=== PATIENT | male | born 1975 | race Caucasian/White ===

== ENCOUNTER 2016-11-13 20:19 | Emergency (ER) | payer BC ==
[~2016-11-13] VITALS: Ht 175.3 cm; Wt 69.0 kg
[2016-11-13 20:19] VITALS: TEMP 37; Ht 175.3 cm; Wt 69.0 kg
[~2016-11-13 20:19] MED LIST: ALBUAER2 INH; FLVHFAUNK INH; LORA10TA5 PO
[2016-11-13] MEDS ORDERED: ONDANSETRON INJ 2 MG/ML 2 ML VIAL IV STA ×2 (20:34→23:14)
[2016-11-13] MEDS ORDERED: SODIUM CHLORIDE 0.9% 1000ML 2,000 ML IV STA (20:34)
--- NOTE | 2016-11-13 20:40 | EMERGENCY ROOM VISIT NOTE ---
History Report prepared by Adryan: Donell Gray Under the Supervision of: Dr. Enoc Jean D.O. First contact with patient: 20:25 Chief Complaint: VOMITING Stated Complaint: VOMIT, WEAKNESS History of Present Illness The patient is a 40 year old male who presents to the Emergency Room with complaints of vomiting that began this afternoon. He rates his pain a 9/10 in severity. The patient rode his bike 75 miles this morning. When he came home, he ate lunch and then went to the store. After he came home from the store he started to not feel well. He then began to vomit until there was nothing in his system. He cannot keep any food or water in his system. The only time he felt like this was 20 years ago. He has been dry heaving since then with nausea, body aches, chills, abdominal pain, weakness, and a headache. He denies any fevers, shortness of breath, or chest pain. He also denies having any abnormal bloody secretions. He has a past medical history of asthma, a tonsillectomy, and a wisdom teeth extraction. Source of History: patient Onset: this afternoon Position: other (GI) Symptom Intensity: 9/10 Quality: ache Timing: constant Associated Symptoms: + abdominal pain, + chills, + headache, + vomiting, + weakness, No SOB, No chest pain, No fevers Review of Systems See HPI for pertinent positives & negatives. A total of 10 systems reviewed and were otherwise negative. Past Medical & Surgical Medical Problems: (1) Asthma Surgical Problems: (1) Hx of tonsillectomy (2) [place] teeth extracted Family History Patient reports no known family medical history. Social History Smoking Status: Never Smoker Smokeless Tobacco Use: No Alcohol Use: occasionally Drug Use: none Marital Status: single Housing Status: lives alone Occupation Status: employed Current/Historical Medications Scheduled Albuterol (Ventolin), 2 PUFFS INH QID PRN Fluticasone Propionate (Flovent Hfa Unknown Dose), 1 PUFF INH BID Loratadine (Claritin), 10 MG PO DAILY Ondasetron Odt (Zofran Odt), 4 MG SL Q6H Allergies Coded Allergies: Tree Extract (Unverified Allergy, Intermediate, WATERY ITCHY EYES, 11/13/16 ) Cat Dander (Unverified Allergy, Unknown, ITCHY/WATERY EYES, 11/13/16) Shellfish (Unverified Allergy, Unknown, SWELLING OF THROAT, 11/13/16) Physical Exam Vital Signs Date Time Temp Pulse Resp B/P Pulse Ox O2 Delivery O2 Flow Rate FiO2 11/13/16 23:19 78 16 132/61 93 Room Air 11/13/16 22:00 78 18 127/75 98 Room Air 11/13/16 20:19 37.0 79 18 137/77 98 Room Air Physical Exam GENERAL: Patient is awake, alert, and in no acute distress. Patient is resting comfortably and showing no signs of anxiety EYES: The conjunctivae are clear. The pupils are round and reactive. EARS, NOSE, MOUTH AND THROAT: The nose is without any evidence of any deformity. Mucous membranes are dry tongue is midline NECK: The neck is nontender and supple. RESPIRATORY: Normal respiratory effort is noted there is no evidence of wheezing rhonchi or rales CARDIOVASCULAR: Regular rate and rhythm noted there no murmurs rubs or gallops normal S1 normal S2 GASTROINTESTINAL: The abdomen is soft. Bowel sounds are present in all quadrants. Abdomen is nontender MUSCULOSKELETAL/EXTREMITIES: There is no evidence of gross deformity full range of motion is noted in the hips and shoulders SKIN: There is no obvious evidence of any rash. There are no petechiae, pallor or cyanosis noted. NEUROLOGIC: Patient is awake alert and oriented x3. Medical Decision & Procedures ER Provider Diagnostic Interpretation: Radiology results are stated below per my review and radiologist interpretation: PA CHEST RADIOGRAPH AND UPRIGHT AND SUPINE AP RADIOGRAPHS OF THE ABDOMEN CLINICAL HISTORY: Abdominal pain and vomiting. COMPARISON STUDY: KUB October 27, 2015. FINDINGS: Lung volumes are normal. Lungs are clear. There is no pneumothorax or pleural effusion. Cardiac size is normal. Mediastinal contours are normal. There is no evidence of pulmonary edema. There is no free air. Bowel gas pattern is normal. No urinary calculi are identified. IMPRESSION: 1. No free air or evidence of bowel obstruction. 2. No acute cardiopulmonary findings. Electronically signed by: Shine Callahan M.D. 11/13/2016 9:31 PM Dictated Date/Time: 11/13/2016 9:29 PM Laboratory Results 11/13/16 20:40 Red Blood Count 4.87, Mean Corpuscular Volume 88.7, Mean Corpuscular Hemoglobin 31.0, Mean Corpuscular Hemoglobin Concent 35.0, Mean Platelet Volume 9.8, Neutrophils (%) (Auto) 88.9, Lymphocytes (%) (Auto) 3.2, Monocytes (%) (Auto) 7.1, Eosinophils (%) (Auto) 0.5, Basophils (%) (Auto) 0.1, Neutrophils # (Auto) 8.24, Lymphocytes # (Auto) 0.30, Monocytes # (Auto) 0.66, Eosinophils # (Auto) 0.05, Basophils # (Auto) 0.01 11/13/16 20:40 Test 11/13/16 20:40 11/13/16 23:15 White Blood Count 9.28 K/uL (4.8-10.8) Red Blood Count 4.87 M/uL (4.7-6.1) Hemoglobin 15.1 g/dL (14.0-18.0) Hematocrit 43.2 % (42-52) Mean Corpuscular Volume 88.7 fL (80-100) Mean Corpuscular Hemoglobin 31.0 pg (25-34) Mean Corpuscular Hemoglobin Concent 35.0 g/dl (32-36) Platelet Count 268 K/uL (130-400) Mean Platelet Volume 9.8 fL (7.4-10.4) Neutrophils (%) (Auto) 88.9 % Lymphocytes (%) (Auto) 3.2 % Monocytes (%) (Auto) 7.1 % Eosinophils (%) (Auto) 0.5 % Basophils (%) (Auto) 0.1 % Neutrophils # (Auto) 8.24 K/uL (1.4-6.5) Lymphocytes # (Auto) 0.30 K/uL (1.2-3.4) Monocytes # (Auto) 0.66 K/uL (0.11-0.59) Eosinophils # (Auto) 0.05 K/uL (0-0.5) Basophils # (Auto) 0.01 K/uL (0-0.2) RDW Standard Deviation 42.8 fL (36.4-46.3) RDW Coefficient of Variation 13.1 % (11.5-14.5) Immature Granulocyte % (Auto) 0.2 % Immature Granulocyte # (Auto) 0.02 K/uL (0.00-0.02) Anion Gap 10.0 mmol/L (3-11) Est Creatinine Clear Calc Drug Dose 112.5 ml/min Estimated GFR () 126.6 Estimated GFR (Non- 109.2 BUN/Creatinine Ratio 25.2 (10-20) Calcium Level 9.3 mg/dl (8.5-10.1) Magnesium Level 1.9 mg/dl (1.8-2.4) Total Bilirubin 0.7 mg/dl (0.2-1) Direct Bilirubin 0.2 mg/dl (0-0.2) Aspartate Amino Transf (AST/SGOT) 23 U/L (15-37) Alanine Aminotransferase (ALT/SGPT) 25 U/L (12-78) Alkaline Phosphatase 54 U/L (45-117) Total Creatine Kinase 149 U/L (39-308) Total Protein 6.9 gm/dl (6.4-8.2) Albumin 4.3 gm/dl (3.4-5.0) Lipase 116 U/L (73-393) Urine Color YELLOW Urine Appearance CLEAR (CLEAR) Urine pH 5.0 (4.5-7.5) Urine Specific [place] 1.021 (1.000-1.030) Urine Protein NEG (NEG) Urine Glucose (UA) NEG (NEG) Urine Ketones 2+ (NEG) Urine Occult Blood NEG (NEG) Urine Nitrite NEG (NEG) Urine Bilirubin NEG (NEG) Urine Urobilinogen NEG (NEG) Urine Leukocyte Esterase NEG (NEG) Laboratory results per my review. Medications Administered Medications (Trade) Dose Ordered Sig/Yancy Route Start Time Stop Time Status Last Admin Dose Admin Sodium Chloride (Nss 1000ml) 2,000 ml @ 999 mls/hr Q2H1M STAT IV 11/13/16 20:34 11/13/16 22:34 DC 11/13/16 20:46 999 MLS/HR Ondansetron HCl (Zofran Inj) 4 mg NOW STAT IV 11/13/16 20:34 11/13/16 20:36 DC 11/13/16 20:46 4 MG Ondansetron HCl (ZOFRAN ODT 4MG Home Pack) 1 homepack UD ONCE PO 11/13/16 23:00 11/13/16 23:01 DC 11/13/16 23:17 1 HOMEPACK Ondansetron HCl (Zofran Inj) 4 mg NOW STAT IV 11/13/16 23:14 11/13/16 23:15 DC 11/13/16 23:17 4 MG ED Course 2024: The patient was evaluated in room B7. A complete history and physical examination were performed. 2033: Ordered Zofran Inj 4 mg IV, NSS 2,000 ml @ 999 mls/hr IV 2149: The patient informed me that he would not like a CT scan. 2299: Ordered Ondansetron HCl 1 homepack PO 2313: Ordered Ondansetron HCl 4 mg IV 2330: Upon reevaluation, the patient is resting. I discussed the results and treatment plan with him. He verbalized agreement of the treatment plan. He was discharged home. Medical Decision Differential diagnosis: Etiologies such as gastroenteritis, food borne illness, infections, appendicitis , diverticulitis, inflammatory bowel disease, obstruction, GI bleed, biliary pathology, as well as others were entertained. Nursing notes reviewed. The patient is a 40-year-old male who presented to the emergency department for an evaluation of nausea vomiting. The patient was riding a bicycle today and got a significant amount of sun. He had a sunburn and states it when he got home he started noticing nausea and vomiting after eating. His vomiting was very severe prior to arrival. He was treated with IV fluids and IV antiemetics. He was reevaluated multiple times. His abdominal pain did not appear to be consistent with an acute surgical abdomen. He did not have any guarding or rigidity. I discussed the patient's laboratory and radiographic studies with him. He was encouraged to rest and avoid any strenuous activity. He was encouraged to use only a clear liquid diet for the time being. He was also encouraged to advance his diet as tolerated starting tomorrow afternoon or return to the emergency Department immediately symptoms change worsen or the need arises. The patient describes some degree of dizziness and I thought he may have vertigo. I offered to do a CAT scan of the head but he did not wish to have that at this time. Impression Primary Impression: Nausea & vomiting Additional Impression: Dehydration Scribe Attestation The scribe's documentation has been prepared under my direction and personally reviewed by me in its entirety. I confirm that the note above accurately reflects all work, treatment, procedures, and medical decision making performed by me. Departure Information Dispostion Home / Self-Care Prescriptions Ondasetron Odt (ZOFRAN ODT) 4 Mg Tab 4 MG SL Q6H for Nausea, #15 TAB Prov: Enoc Jean, DO 11/13/16 Referrals Bruce Yen M.D. (PCP) Forms HOME CARE DOCUMENTATION FORM, IMPORTANT VISIT INFORMATION Patient Instructions My [facility], Vomiting - [facility] Additional Instructions I would recommend a clear liquid diet overnight. Advance diet as tolerated after lunch tomorrow. Drink plenty of Pedialyte and Gatorade. Drink small amounts of liquids more frequently. Return to the emergency department immediately if symptoms change worsen or the need arises. Problem Qualifiers Primary Impression: Nausea & vomiting Vomiting type: unspecified Vomiting Intractability: non-intractable Qualified Codes: R11.2 - Nausea with vomiting, unspecified
[2016-11-13 20:50] LABS: BASO % 0.1 %; BASO ABS # 0.01 K/uL (0-0.2); COMPLETE YES; EOS % 0.5 %; HEMATOCRIT 43.2 % (42-52); IG% 0.2 %; LYMPH % 3.2 %; MEAN CELL VOLUME 88.7 fL (80-100); MEAN PLATELET VOLUME 9.8 fL (7.4-10.4); MONO % 7.1 %; NEUT % 88.9 %; PLATELET COUNT 268 K/uL (130-400); RED BLOOD COUNT 4.87 M/uL (4.7-6.1); WHITE BLOOD COUNT 9.28 K/uL (4.8-10.8)
[2016-11-13 21:07] LABS: BUN/CREATININE RATIO 25.2 (10-20); CREATININE 0.86 mg/dl (0.60-1.40); MAGNESIUM 1.9 mg/dl (1.8-2.4); POTASSIUM 4.1 mmol/L (3.5-5.1)
--- NOTE | 2016-11-13 21:33 | DIAGNOSTIC IMAGING REPORT ---
PA CHEST RADIOGRAPH AND UPRIGHT AND SUPINE AP RADIOGRAPHS OF THE ABDOMEN CLINICAL HISTORY: Abdominal pain and vomiting. COMPARISON STUDY: KUB October 27, 2015. FINDINGS: Lung volumes are normal. Lungs are clear. There is no pneumothorax or pleural effusion. Cardiac size is normal. Mediastinal contours are normal. There is no evidence of pulmonary edema. There is no free air. Bowel gas pattern is normal. No urinary calculi are identified. IMPRESSION: 1. No free air or evidence of bowel obstruction. 2. No acute cardiopulmonary findings. Electronically signed by: Shine Callahan M.D. 11/13/2016 9:31 PM Dictated Date/Time: 11/13/2016 9:29 PM
[2016-11-13 22:09] LABS: CALCIUM 9.3 mg/dl (8.5-10.1)
[2016-11-13] MEDS ORDERED: ONDANSETRON HOME PACK 4MG OD TAB PO ONE (23:00)
[2016-11-13] MEDS ORDERED: ONDA4TAB10 SL (23:12)
[2016-11-13 23:19] VITALS: BP 132/61; PULSE 78; O2SAT 93
[2016-11-13 23:22] LABS: URINE APPEARANCE CLEAR (CLEAR); URINE BILIRUBIN NEG (NEG); URINE COLOR YELLOW; URINE NITRITE NEG (NEG); URINE SPECIFIC GRAVITY 1.021 (1.000-1.030); UROBILINOGEN NEG (NEG)
[2016-11-13 23:31] LABS: MANUAL MICROSCOPIC REQUIRED? NO; REVIEW REQ? NO
== END 2016-11-13 23:48 | disposition home or self-care (01) ==
LOC: EDBD 20:19 → C.EDB 20:21
DX: R11.2 Nausea with vomiting, unspecified (principal); E86.0 Dehydration; R68.83 Chills (without fever); R10.9 Unspecified abdominal pain; R53.1 Weakness; R51 Headache; J45.909 Unspecified asthma, uncomplicated; Z79.899 Other long term (current) drug therapy

== ENCOUNTER → 2017-05-06 | Outpatient (CLI) | payer BC ==
[~2017-05-06] MED LIST changes: +ONDA4TAB10 SL
--- NOTE | 2017-05-06 12:33 | DIAGNOSTIC IMAGING REPORT ---
CHEST 2 VIEWS ROUTINE CLINICAL HISTORY: Cough. COMPARISON STUDY: Chest radiograph November 13, 2016. FINDINGS: Lung volumes are normal. No consolidation is identified. There is no pneumothorax or pleural effusion. Pulmonary vascularity is normal. Cardiomediastinal silhouette is normal. The appearance of the chest is unchanged. IMPRESSION: No acute cardiopulmonary findings. Electronically signed by: Shine Callahan M.D. 05/06/2017 12:32 PM Dictated Date/Time: 05/06/2017 12:31 PM
[2017-05-06 13:09] LABS: BASO % 0.3 %; BASO ABS # 0.02 K/uL (0-0.2); COMPLETE YES; HEMATOCRIT 43.9 % (42-52); IG% 0.2 %; LYMPH % 19.9 %; LYMPH ABS # 1.21 K/uL (1.2-3.4); MEAN CELL VOLUME 90.7 fL (80-100); MEAN CORPUSCULAR HEMOGLOBIN 31.4 pg (25-34); MEAN CORPUSCULAR HGB CONC 34.6 g/dl (32-36); MEAN PLATELET VOLUME 10.2 fL (7.4-10.4); MONO % 16.1 %; NEUT % 63.5 %; PLATELET COUNT 256 K/uL (130-400); RED BLOOD COUNT 4.84 M/uL (4.7-6.1); WHITE BLOOD COUNT 6.08 K/uL (4.8-10.8)
[2017-05-06 13:38] LABS: BLOOD UREA NITROGEN 8 mg/dl (7-18); BUN/CREATININE RATIO 9.1 (10-20); CALCIUM 9.6 mg/dl (8.5-10.1); CARBON DIOXIDE 29 mmol/L (21-32); CHLORIDE 102 mmol/L (98-107); GLUCOSE 104 mg/dl (70-99); POTASSIUM 4.1 mmol/L (3.5-5.1); SODIUM 137 mmol/L (136-145)
[2017-05-06 13:50] LABS: ALB/GLOB RATIO 1.1 (0.9-2); ALKALINE PHOSPHATASE 65 U/L (45-117); ALT/SGPT 20 U/L (12-78); AST/SGOT 23 U/L (15-37); IMMUNOGLOBULN M 67.4 mg/dL (40-230)
[2017-05-06 14:33] LABS: LYME DISEASE AB IGG NEG (NEG); LYME DISEASE AB IGM NEG (NEG)
[2017-05-06 15:06] LABS: INFLUENZA A PCR Neg for Influ A (NEG); INFLUENZA B PCR Neg for Influ B (NEG)
[2017-05-09 15:29] LABS: EBV EARLY ANTIGEN AB <9.00 U/ML
== END | disposition home or self-care (01) ==
LOC: C.RAD1850 10:50
PROVIDERS: ATTEND Physician Assistant Medical
DX: R05 Cough (principal); B99.9 Unspecified infectious disease; R50.9 Fever, unspecified; J02.9 Acute pharyngitis, unspecified; R53.83 Other fatigue

== ENCOUNTER → 2017-05-09 | Outpatient (CLI) | payer BC ==
[2017-05-09 16:51] LABS: URINE APPEARANCE CLEAR (CLEAR); URINE BILIRUBIN NEG (NEG); URINE COLOR YELLOW; URINE NITRITE NEG (NEG); URINE PH 6.5 (4.5-7.5); URINE SPECIFIC GRAVITY 1.009 (1.000-1.030); UROBILINOGEN NEG (NEG)
[2017-05-09 16:52] LABS: MANUAL MICROSCOPIC REQUIRED? NO; REVIEW REQ? YES
[2017-05-09 17:06] LABS: URINE EPITHELIAL CELL AUTO 0-5 /lpf (0-5)
== END | disposition home or self-care (01) ==
LOC: C.LAB1850 15:12
PROVIDERS: ATTEND Physician Assistant Medical
DX: R50.9 Fever, unspecified (principal)

== ENCOUNTER → 2017-05-09 | Outpatient (CLI) | payer BC ==
--- NOTE | 2017-05-09 14:50 | DIAGNOSTIC IMAGING REPORT ---
CHEST 2 VIEWS ROUTINE CLINICAL HISTORY: R05 [id number] COMPARISON STUDY: 05/06/2017 FINDINGS: The heart is normal in size. There are left perihilar airspace opacities which likely represent a left upper lobe pneumonitis. There are no pleural effusions. The right lung is clear.[ IMPRESSION: Left perihilar airspace opacities, likely representing a left upper lobe pneumonitis. Clinical and radiographic follow-up is recommended. Electronically signed by: Juan Patino M.D. 05/09/2017 2:49 PM Dictated Date/Time: 05/09/2017 2:47 PM
== END | disposition home or self-care (01) ==
LOC: C.RAD1850 14:38
PROVIDERS: ATTEND Physician Assistant Medical
DX: R05 Cough (principal)

== ENCOUNTER → 2017-05-23 | Outpatient (CLI) | payer BC ==
[~2017-05-23] MED LIST changes: -ONDA4TAB10 SL
--- NOTE | 2017-05-23 10:55 | DIAGNOSTIC IMAGING REPORT ---
CHEST 2 VIEWS ROUTINE HISTORY: 41 years-old Male J18.9 Pneumonitis follow-up study in a patient with pneumonia COMPARISON: Chest radiograph 05/09/2017 TECHNIQUE: Frontal and lateral views of the chest FINDINGS: Cardiac silhouette is within normal limits. There is near complete resolution of the previously described left perihilar opacities, now with linear subsegmental opacity in the left upper lobe suggesting some postinflammatory pleural-parenchymal scarring. No pneumothorax, pleural effusion, new focal airspace consolidation or overt pulmonary edema. Lungs are mildly hyperinflated. The bones are grossly intact. Multilevel spondylitic changes of the spine. IMPRESSION: Near complete resolution of the previously described left perihilar opacities, now with linear subsegmental opacity in the left upper lobe suggesting postinflammatory pleural parenchymal scarring. The above report was generated using voice recognition software. It may contain grammatical, syntax or spelling errors. Electronically signed by: Reinaldo Freitas M.D. 05/23/2017 10:54 AM Dictated Date/Time: 05/23/2017 10:52 AM
== END | disposition home or self-care (01) ==
LOC: C.RAD1850 09:45
PROVIDERS: ATTEND Physician Assistant Medical
DX: J18.9 Pneumonia, unspecified organism (principal)